=== PATIENT | female | born 2000 | race Caucasian/White ===

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

== ENCOUNTER 2022-03-08 23:40 | Emergency (ER) | payer BC, MEDICAID ==
[2022-03-09] MEDS ORDERED: Lidocaine 1% 5 ML VIAL ONE (00:09)
[2022-03-09] MEDS ORDERED: Bacitracin/Neomycin/Polymyxin B Oint 0.9 GM U/D Packet TOP ONE (00:43)
== END 2022-03-09 00:50 | disposition home or self-care (01) ==
LOC: LL.ED 23:40
DX: S71.111A Laceration without foreign body, right thigh, initial encounter (principal); Z91.048 Other nonmedicinal substance allergy status; Z88.8 Allergy status to other drugs, medicaments and biological substances; W26.8XXA Contact with other sharp object(s), not elsewhere classified, initial encounter
CPT/HCPCS: 12002; 99282-25; 99284